=== PATIENT | female | born 1980 | race Caucasian/White ===

== ENCOUNTER → 2020-02-22 13:56 | Outpatient (CLI) | payer OTHER, SELFPAY ==
--- NOTE | 2020-02-22 14:07 | EKG12_ITS ---
Test Reason : PREOP Blood Pressure : / mmHG Vent. Rate : 083 BPM Atrial Rate : 083 BPM P-R Int : 140 ms QRS Dur : 084 ms QT Int : 364 ms P-R-T Axes : 019 002 015 degrees QTc Int : 427 ms Normal sinus rhythm Normal ECG Confirmed by RADHA LOPEZ, YOLANDA ([id number]), editor dictionary CAEDN POOL ([id number]) on 02/23/2020 3:28:33 PM Referred By: Viktor Pool Confirmed By:YOLANDA GARCIA MD
--- NOTE | 2020-02-22 14:22 | RAD_ITS ---
STUDY: X-RAY CHEST REASON FOR EXAM: Female, 39 years old. Pre op for knee replacement -- no chest complaints TECHNIQUE: PA and lateral views of the chest. COMPARISON: 2016 FINDINGS: The lungs are clear and expanded. There is no demonstrated pleural abnormality. Normal size heart. Normal mediastinum and hoang. Normal visualized pulmonary arteries. Normal visualized aortic arch and descending thoracic aorta. Normal visualized thoracic spine. Normal visualized ribs, clavicles, and shoulders. There is no demonstrated abnormality of the visualized soft tissue structures of the upper abdomen. RAD/Chest PA and Lateral IMPRESSION: Normal x-ray examination of the chest. Electronically Signed: Montana Talamantes MD at 15:36 EDT , Service support ,
== END ==
PROVIDERS: PCP Family Medicine; Referring Provider Orthopaedic Surgery; Visit Provider Orthopaedic Surgery
DX: Z01.810 Encounter for preprocedural cardiovascular examination (principal); Z01.811 Encounter for preprocedural respiratory examination
CPT/HCPCS: 71046; 93005